=== PATIENT | female | born 2000 | race Two or more races ===

== ENCOUNTER 2020-07-01 02:02 | Outpatient (CLI) | payer OTHER ==
[2020-07-01] MEDS ORDERED: FOLIC ACID0.8 MG PO (02:15)
[2020-07-01] MEDS ORDERED: PRENATAL TABLE1 EAC1 PO (02:15)
[2020-07-01] MEDS ORDERED: IRON325 MG PO (02:16)
== END 2020-07-01 17:41 | disposition home or self-care (01) ==
LOC: OBS/DEL 02:02
PROVIDERS: ATTEND Obstetrics & Gynecology
DX: O60.03 Preterm labor without delivery, third trimester (principal); Z3A.29 29 weeks gestation of pregnancy

== ENCOUNTER 2020-09-05 06:00 | Inpatient (IN) | payer OTHER ==
[~2020-09-05] VITALS: Ht 162.6 cm; Wt 68.0 kg
[~2020-09-05 06:00] MED LIST: FOLIC ACID0.8 MG PO; IRON325 MG PO; PRENATAL TABLE1 EAC1 PO
== END 2020-09-07 12:00 | disposition home or self-care (01) | DRG 807 ==
LOC: OB/GYN 06:00 → LDR 06:00 → OB/GYN 21:28
PROVIDERS: ADMIT Obstetrics & Gynecology; ATTEND Obstetrics & Gynecology
PROC: 10E0XZZ Delivery of Products of Conception, External Approach (ICD-10-PCS; principal; 2020-09-05)
PROC: 4A1HXFZ Monitoring of Products of Conception, Cardiac Rhythm, External Approach (ICD-10-PCS; 2020-09-05)
DX: O80 Encounter for full-term uncomplicated delivery (principal); Z37.0 Single live birth; Z3A.39 39 weeks gestation of pregnancy; Z20.822 Contact with and (suspected) exposure to COVID-19